=== PATIENT | female | born 1990 | race Caucasian/White ===

== ENCOUNTER 2017-11-04 21:07 | Outpatient (CLI) | payer OTHER ==
[~2017-11-04] VITALS: Ht 160 cm; Wt 66.4 kg
[~2017-11-04 21:07] MED LIST: MEDROL4 MG; MOTRIN 800800 MG/TAB PO; PERCOCET 325 MG1 TA2 PO; PRENATAL1 TA7 PO
[2017-11-04 21:25] VITALS: BP 112/82; PULSE 92
[2017-11-04] MEDS ORDERED: VITAMIN B COMPL1 SGL PO (22:05)
[2017-11-04] MEDS ORDERED: MAKENA250 MG/1 M IM (22:07)
[2017-11-04 22:08] VITALS: BP 99/56; PULSE 78
== END 2017-11-04 22:40 | disposition home or self-care (01) ==
LOC: LDRO 21:07
DX: O62.9 Abnormality of forces of labor, unspecified (principal); Z3A.35 35 weeks gestation of pregnancy

== ENCOUNTER 2017-11-09 02:40 | Outpatient (CLI) | payer OTHER ==
[~2017-11-09] VITALS: Ht 160 cm; Wt 65.9 kg
[~2017-11-09 02:40] MED LIST changes: +MAKENA250 MG/1 M IM; +VITAMIN B COMPL1 SGL PO
[2017-11-09 03:15] VITALS: BP 121/71; PULSE 86; TEMP 98.4
[2017-11-09 04:15] VITALS: BP 100/58; PULSE 70
== END 2017-11-09 04:30 | disposition home or self-care (01) ==
LOC: LDRO 02:40
DX: O62.9 Abnormality of forces of labor, unspecified (principal); Z3A.36 36 weeks gestation of pregnancy

== ENCOUNTER 2017-11-11 02:09 | Inpatient (IN) | payer OTHER ==
[2017-11-11] VITALS (23 sets, daily range): BP systolic 98–127; BP diastolic 53–78; PULSE 65–87; TEMP 97.9–98.3
[~2017-11-11] VITALS: Ht 160 cm; Wt 145.0 kg
[2017-11-11 08:48] LABS: BASO % 0.2 % (0.0-2.0); EOS # 0.1 (0.0-0.7); EOS % 0.7 % (0-4.0); GRAN # 9.1 (1.4-6.5); GRAN % 68.9 % (42.2-75.2); HEMOGLOBIN 12.1 g/dl (12.5-16.0); LYMPH # 2.8 (1.2-3.4); LYMPH % 21.5 % (20.0-51.0); MEAN CELL VOLUME 93 fl (80.0-100.0); MEAN CORPUSCULAR HEMOGLOBIN 32 pg (27.0-31.0); MEAN CORPUSCULAR HGB CONC 34 g/dl (33.0-37.0); MEAN PLATELET VOLUME 10.9 fl (7.4-10.4); MONO # 1.1 (0.1-0.6); MONO % 8.1 % (1.7-9.3); PLATELET COUNT 178 K/mm3 (130-400); RED BLOOD COUNT 3.81 M/mm3 (4.10-5.30); REDCELL DISTRIBUTION WIDTH-CV 12.6 % (11.5-14.5)
[2017-11-11 09:00] LABS: HEMATOCRIT 35.3 % (37.0-47.0)
[2017-11-12 01:35] VITALS: BP 84/51; PULSE 68; TEMP 98
[2017-11-12 07:20] VITALS: BP 116/70; PULSE 72; TEMP 97.8
[2017-11-12] MEDS ORDERED: IBU800 M1 PO (11:28)
[2017-11-12] MEDS ORDERED: PERCOCET 325 MG1 TA2 PO (12:25)
[2017-11-12 16:00] VITALS: BP 126/58; PULSE 74; TEMP 97.8
[2017-11-12 20:20] VITALS: BP 105/60; PULSE 74; TEMP 98.1
[2017-11-13 08:35] VITALS: BP 104/72; PULSE 82; TEMP 98
== END 2017-11-13 09:25 | disposition home or self-care (01) | DRG 775 ==
LOC: LDRO 02:09 → OB 07:40 → LDR 07:40 → OB 16:00
PROVIDERS: Student in an Organized Health Care Education/Training Program
PROC: 10E0XZZ Delivery of Products of Conception, External Approach (ICD-10-PCS; principal; 2017-11-11)
DX: O60.14X0 Preterm labor third trimester with preterm delivery third trimester, not applicable or unspecified (principal); O36.0930 Maternal care for other rhesus isoimmunization, third trimester, not applicable or unspecified; Z3A.36 36 weeks gestation of pregnancy; Z37.0 Single live birth; O99.284 Endocrine, nutritional and metabolic diseases complicating childbirth; E04.1 Nontoxic single thyroid nodule
CPT/HCPCS: J2590; J2791; J2795; J7120